=== PATIENT | female | born 1950 | race Caucasian/White ===

== ENCOUNTER 2020-05-08 16:55 | Observation (INO) | payer OTHER, BC ==
[~2020-05-08] VITALS: Ht 165.1 cm; Wt 82.6 kg
[2020-05-08 17:02] VITALS: BP 145/79
[2020-05-08 17:30] LABS: ABSOLUTE BASOPHILS 0.1 thou/uL (0.0-0.2); ABSOLUTE EOSINOPHILS 0.3 thou/uL (0.0-0.7); ABSOLUTE LYMPHOCYTES 2.5 thou/uL (0.8-5.3); ABSOLUTE MONOCYTES 0.7 thou/uL (0.0-1.2); ABSOLUTE NEUTROPHILS 8.8 thou/uL (1.6-8.1); HEMATOCRIT 40.2 % (37.0-47.0); HEMOGLOBIN 14.2 gm/dL (12.0-15.0); LYMPHOCYTES 20.1 %; MCH 30.6 pg (26.0-34.0); MCHC 35.2 g/dL (28.0-37.0); MCV 86.9 fL (80.0-100.0); MONOCYTES 5.6 %; MPV 9.7 fl. (7.2-11.1); NUCLEATED RBCS 0 /100WBC; PLATELET COUNT* 237 thou/uL (150-400); POLYS 71.3 %; RBC 4.63 mil/uL (4.20-5.00); RDW-CV 12.9 % (10.5-14.5); WBC 12.4 thou/uL (4.0-11.0)
[2020-05-08 17:36] LABS: PROTIME 10.3 Seconds (9.20-11.50)
[2020-05-08 17:50] LABS: CALCIUM 9.1 mg/dL (8.5-10.1); POTASSIUM 3.7 mmol/L (3.5-5.1); TOTAL BILIRUBIN 0.7 mg/dL (<0.1-1.0); TOTAL PROTEIN 7.6 g/dL (6.4-8.2)
[2020-05-08 18:18] VITALS: BP 141/62
[2020-05-08 18:24] VITALS: BP 175/61
[2020-05-08] MEDS ORDERED: ASA81BEC PO (18:47)
[2020-05-08] MEDS ORDERED: CARVEDILOL25 MG PO (18:48)
[2020-05-08] MEDS ORDERED: PROTONIX40 M3 PO (18:48)
[2020-05-08] MEDS ORDERED: LIPITOR40 MG PO (18:48)
[2020-05-08] MEDS ORDERED: ZESTRIL40 MG PO (18:49)
[2020-05-08] MEDS ORDERED: MELOXICAM7.5 MG PO (18:49)
[2020-05-08] MEDS ORDERED: SPIRONOLACTONE25 MG PO (18:49)
[2020-05-08] MEDS ORDERED: FUROSEMIDE 40 M40 MG PO (18:49)
[2020-05-08 19:27] VITALS: BP 136/71
[2020-05-09] VITALS (7 sets, daily range): BP systolic 108–150; BP diastolic 54–75
--- NOTE | 2020-05-09 12:50 | EKG ---
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
--- NOTE | 2020-05-09 13:00 | EKG ---
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
--- NOTE | 2020-05-09 13:15 | OP ---
[facility] [address] [place] [address] OPERATIVE REPORT Name: DEBORAHSTEPHIE Room: [address]#: [id number] Admission: 05/08/20 Attend Phys: Coy Reyes Discharge: Date of : 46 Report #: [id number] THIS REPORT FOR: //name// cc: Adelita Valdez Mohammad K. DO ~ THIS REPORT FOR: //name// CC: Coy Valdez DO DATE OF SERVICE: 05/09/2020 PREOPERATIVE DIAGNOSIS: Acute appendicitis. POSTOPERATIVE DIAGNOSIS: Acute appendicitis. OPERATION: Laparoscopic appendectomy. SURGEON: Coy Reyes MD ANESTHESIA: General. ESTIMATED BLOOD LOSS: Minimal. SPECIMEN: Appendix. DESCRIPTION OF PROCEDURE: After informed consent was obtained, the patient was brought to the operating room and placed supine. SCDs were placed and working, preoperative antibiotics were administered, general anesthesia was induced. The abdomen was prepped and draped in the usual sterile fashion. A 10 mm incision was made above the umbilicus. Fascia was incised and a trocar was placed. Pneumoperitoneum was established. Right upper quadrant and left lower quadrant 5 mm trocars were placed. The appendix was grasped and retracted anteriorly. It was somewhat enlarged, but it was not perforated. A window was made in the mesoappendix. The mesoappendix was ligated with a MARELY le load stapler. There was good hemostasis. The base of the appendix was then stapled off with a MARELY blue load stapler. Appendix was placed into an Endopouch and removed. The fascia was then closed with a ongaqt-hy-xjeao 0 Vicryl. Skin was closed with 4-0 Monocryl. Incisions were sealed with Dermabond. COMPLICATIONS: [place] [address] OPERATIVE REPORT Name: DEBORAHSTEPHIE EBONI [address]#: [id number] Admission: 05/08/20 Attend Phys: Coy Reyes Discharge: Date of : 46 Report #: [id number] DISPOSITION: The patient was taken to recovery in satisfactory condition. <ELECTRONICALLY SIGNED> By: Coy Reyes MD 05/09/20 1315 0858 0909Coy Reyes MD /nt
[2020-05-10] VITALS: BP 136/71
[2020-05-10 03:25] VITALS: BP 120/60
[2020-05-10 08:18] VITALS: BP 119/63
[2020-05-10 08:52] VITALS: BP 119/63
[2020-05-10] MEDS ORDERED: HYDROCODON-ACE1 EAC7 PO (11:25)
--- NOTE | 2020-05-14 15:07 | PATH ---
[place] [address] PATHOLOGY RPT PROCEDURE Name: LYSSA MENDEZ [address] [id number] Admission: 05/08/20 Date of : 46 Discharge: 05/10/20 Report #: [id number] Path Case #: [id number] [facility] Accession Number: [id number] . 01 Material submitted: . appendix - APPENDIX . 01 Clinical history: . Pre-op diagnosis: Right lower quadrant pain Post-op diagnosis: Acute appendicitis Appendicitis . 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 See comment. (ADONAY:[place]; 05/14/2020) S 05/14/2020 1325 Local . 02 Comment: The mucinous cystadenoma is entirely confined to the mucosa and is without atypia. (ADONAY:[place]; 05/14/2020) . 02 Electronically signed: . Woody Jerez MD, Pathologist NPI- [id number] . 01 Gross description: . The specimen is received in formalin, labeled "Lyssa Mendez, appendix". Received is a vermiform appendix measuring 5.5 cm in length by up to 1.1 cm in diameter with a moderate amount of attached mesoappendix. The serosal surface is pink-childers and glistening in appearance. The surgical margin is closed with a line of alondra. The alondra are removed and the new margin is inked black. Sectioning reveals a patent lumen filled with a slight amount of possible purulent material. The specimen is submitted representatively in cassettes A1 and A2, with the proximal margin and bisected tip submitted in cassette A1. ([facility]; 05/10/2020) . After initial microscopic examination, the remainder of the appendix is submitted from proximal to distal aspects in cassettes A3 through A5. ([facility]; 05/13/2020) QA/[facility] 05/14/2020 1323 Local . 02 Microscopic: . . . [address] [place] [address] PATHOLOGY RPT PROCEDURE Name: LYSSA MENDEZ Room: [address] M.R.#: [id number] Admission: 05/08/20 Date of : 46 Discharge: 05/10/20 Report #: [id number] Path Case #: [id number] Pathologist provided ICD-10: D12.1, K35.80 . 02 CPT . 429876 Specimen Comment: A courtesy copy of this report has been sent to [phone] Specimen Comment: [phone] Specimen Comment: Report sent to / DR MALDONADO Performed at: [address] [facility] [address], [place], [place] [id number] MD Juan Luis Diaz MD Phone: [phone] Performed at: 02 [facility] [place] [address], [place], [place] [id number] MD Woody Jerez MD Phone: [phone]
== END 2020-05-10 15:40 | disposition home or self-care (01) ==
LOC: M.ORTHSURG 05-10 15:40
PROVIDERS: Family Medicine; ADMIT Surgery; ATTEND Surgery
DX: Z03.818 Encounter for observation for suspected exposure to other biological agents ruled out (principal); K35.80 Unspecified acute appendicitis